=== PATIENT | male | born 1965 | race African-American/Black ===

== ENCOUNTER → 2019-03-07 | Day surgery (SDC) | payer MEDICARE ==
[2019-03-06 14:03] LABS: BASOPHILS % 0.4 % (0.0-1.0); EOSINOPHILS # (AUTO) 0.4 (0.0-0.4); EOSINOPHILS % 7.1 % (0.0-6.0); HEMATOCRIT 30.4 % (38.2-49.6); HEMOGLOBIN 9.4 g/dL (14.0-18.0); LYMPHOCYTES % 18.1 % (18.0-39.1); MEAN CORPUSCULAR HEMOGLOBIN 26.6 pg (28-32); MEAN CORPUSCULAR HGB CONC 30.9 g/dL (31-35); MEAN CORPUSCULAR VOLUME 85.9 fL (81-99); MONOCYTES # (AUTO) 0.3 (0.2-0.8); MONOCYTES % 6.2 % (4.4-11.3); NEUTROPHILS # (AUTO) 3.7 (2.1-6.9); NEUTROPHILS % 67.8 % (38.7-80.0); PLATELET COUNT 165 x10e3/uL (140-360); RED BLOOD COUNT 3.54 x10e6/uL (4.3-5.7); RED CELL DISTRIBUTION WIDTH 15.8 % (11.7-14.4)
[2019-03-06 14:12] LABS: INR 0.99; PROTHROMBIN TIME 13.6 seconds (11.9-14.5)
[2019-03-06 14:13] LABS: PARTIAL THROMBOPLASTIN TIME 34.3 seconds (23.8-35.5)
[2019-03-06 14:17] LABS: ANION GAP 17.7 mmol/L (8-16); CALCIUM 9.3 mg/dL (8.4-10.2); CREATININE, SERUM 9.5 mg/dL (0.72-1.25); POTASSIUM 3.7 mmol/L (3.5-5.1)
[~2019-03-07] MED LIST: AMLODIPINE BESYL5 MG PO; CARVEDILOL6.25 MG; COLCRYS0.6 MG PO; LIDOCAINE HCL 2% LOCAL INJ 5 ML SDV VIAL INJ ONE; MIDAZOLAM HCL 2 MG/2 ML VIAL ONE; PROPOFOL IV EMULSION 10 MG/ML 50 ML VIAL ONE; RENVELA2.4 GM PO; SENSIPAR30 MG PO; SODIUM CHLORIDE 0.9% 500ML 500 ML ONE
--- OUTSIDE RECORDS SUMMARY | 2019-03-07 10:16 | XMS REPORT ---
Author Author [facility] Address Unknown Phone Unavailable Care Team Providers Care Potline Monitor Name Role Phone Unavailable Unavailable Payers Payer Name Policy Type Policy Number Effective Date Expiration Date Problems This patient has no known problems. Allergies, Adverse Reactions, Alerts Allergy Name Allergy Type Status Severity Reaction(s) Onset Date Inactive Date Treating Clinician Comments No Known Allergies DA Active U 2015-02-23 00:00:00 Medications This patient has no known medications. Results Test Description Test Time Test Comments Text Results Atomic Results Result Comments - XR CHEST 2 V 2019-01-31 18:14:00 FAX: Aaron Bartlett MD [phone] [place]: [place] St: REG Name: MIRA SINGH [facility] FSED : 1965 Age/S: 53/M [address] [facility] [address] Unit #: [id number] Loc: [facility] B Phys: Aaron Bartlett MD [place], [place] [address] Acct: [id number] Dis Date: Status: REG ER PHONE #: Exam Date: 01/31/2019 1801 FAX #: Reason: cough EXAMS: CPT CODE: [id number] XR CHEST 2 V [id number] REASON FOR EXAM: cough Exam Order Date: 01/31/2019 5:54 PM Ordering M.Alma: Aaron Bartlett MD PROCEDURE: - XR CHEST 2 V COMPARISON: July 14, 2015. FINDINGS: Enlarged cardiac silhouette with perihilar vascular congestion is again seen. No evidence of an acute infiltrate, pleural effusion, or pneumothorax. The regional bones, the visualized upper abdomen are unchanged. IMPRESSION: Stable enlarged cardiac silhouette with perihilar vascular congestion.. No evidence of consolidation/pneumonia. at 1814 Reported and signed by: Fred Swartz M.D. CC: Aaron Bartlett MD Technologist: Papi Viera Trnsdrd Date/Time/By: 01/31/2019 (1813) : By: [email or web address] Orig Print D/T: S: 01/31/2019 (1816) PAGE 1 Signed Report
[2019-03-07 13:25] VITALS: BP 118/65
== END | disposition home or self-care (01) ==
LOC: OR 10:13
PROVIDERS: ATTEND Internal Medicine
DX: Z12.11 Encounter for screening for malignant neoplasm of colon (principal); K64.0 First degree hemorrhoids; I13.2 Hypertensive heart and chronic kidney disease with heart failure and with stage 5 chronic kidney disease, or end stage renal disease; N18.6 End stage renal disease; I50.9 Heart failure, unspecified; Z99.2 Dependence on renal dialysis; Z94.0 Kidney transplant status; Z01.810 Encounter for preprocedural cardiovascular examination; Z01.812 Encounter for preprocedural laboratory examination; Z68.34 Body mass index [BMI] 34.0-34.9, adult; Z85.528 Personal history of other malignant neoplasm of kidney
CPT/HCPCS: 36415 ×2; 80048; 84132; 85025; 85610; 85730; 93005; G0121; J2001; J2250; J2704; J7040; 45378